=== PATIENT | female | born 1950 | race Caucasian/White ===

== ENCOUNTER → 2017-02-24 | Outpatient (CLI) | payer MEDICARE, MEDICAID ==
[~2017-02-24] MED LIST: ALBU18HF INH; AMLO5TAB2 PO; ASCO-96 PO; CLON0.1T PO; EPIN0.3P3 IM; FLUO40CA2 PO; FURO20TA3 PO; GABA100C8 PO; LEVO100T PO; LORA10TA62 PO; LOSA100T6 PO; MILK150C2 PO; MULT-230 PO; OMEP-110 PO; OXYC20TA2 PO; OXYC40TA PO; SENN1TAB67 PO; [UNRECOGNIZED DRUG - OTHER] PO
[2017-02-24 15:29] LABS: BLOOD UREA NITROGEN 5 mg/dL (7-18)
[2017-02-24 15:34] LABS: ASPARTATE AMINO TRANSFERASE 120 U/L (15-37)
== END | disposition home or self-care (01) ==
LOC: STAR 13:35
PROVIDERS: ATTEND Surgery
DX: Z01.818 Encounter for other preprocedural examination (principal); M41.85 Other forms of scoliosis, thoracolumbar region; I70.0 Atherosclerosis of aorta; M47.895 Other spondylosis, thoracolumbar region; Q79.1 Other congenital malformations of diaphragm; Z90.49 Acquired absence of other specified parts of digestive tract
CPT/HCPCS: 36415; 71020; 80053; 85025; 85610; 93005

== ENCOUNTER 2017-03-02 13:28 | Day surgery (SDC) | payer MEDICARE, MEDICAID ==
[~2017-03-02] VITALS: Ht 157.5 cm; Wt 83.0 kg
[~2017-03-02 13:28] MED LIST changes: +GABA-826 PO; -GABA100C8 PO
[2017-03-02] MEDS ORDERED: LACTATED RINGERS 1,000 ML IV SCH (13:47)
[2017-03-02 13:48] VITALS: BP 157/80
[2017-03-02] MEDS ORDERED: BUPIVACAINE/PF-EPI 0.5% 1:200K ONE (13:54)
[2017-03-02] MEDS ORDERED: LIDOCAINE 1%, 2ML SQ PRN (14:00)
[2017-03-02] MEDS ORDERED: BUPIVACAINE/PF-EPI 0.5% 1:200K INFIL ONE (14:00)
[2017-03-02] MEDS ORDERED: DEXAMETHASONE 4 MG/ML, 1ML ONE (14:18)
[2017-03-02] MEDS ORDERED: GLYCOPYRROLATE 0.2MG/1ML ONE (14:18)
[2017-03-02] MEDS ORDERED: ROCURONIUM 10 MG/ML ONE (14:18)
[2017-03-02] MEDS ORDERED: PROPOFOL 10 MG/ML, 20ML ONE (14:18)
[2017-03-02] MEDS ORDERED: ONDANSETRON 2MG/ML, 2ML ONE (14:18)
[2017-03-02] MEDS ORDERED: CEFAZOLIN 1,000 MG ONE (14:18)
[2017-03-02] MEDS ORDERED: NEOSTIGMINE 1 MG/ML, 10ML ONE (14:18)
[2017-03-02] MEDS ORDERED: FENTANYL PF 100 MCG/2ML ONE ×2 (14:19)
[2017-03-02] MEDS ORDERED: OXYcodone 5 MG/5 ML ORAL.SOL UDC PO PRN (15:00)
[2017-03-02] MEDS ORDERED: ONDANSETRON 2MG/ML, 2ML IVPush PRN (15:00)
[2017-03-02] MEDS ORDERED: HYDROmorphone 1 MG/ML, 1ML IV PRN (15:00)
[2017-03-02] MEDS ORDERED: ACETAMINOPHEN 325 MG TABLET PO PRN (15:00)
[2017-03-02] MEDS ORDERED: LABETALOL 5MG/ML, 20ML IV PRN (15:00)
[2017-03-02] MEDS ORDERED: EPHEDRINE 50 MG/ML, 1ML IVPush PRN (15:00)
[2017-03-02] MEDS ORDERED: METOPROLOL 1 MG/ML, 5ML IV PRN (15:00)
[2017-03-02] MEDS ORDERED: hydrALAzine 20 MG/ML, 1ML IV PRN (15:00)
[2017-03-02] MEDS ORDERED: ALBUTEROL SULFATE 2.5 MG/3 ML NPPB PRN (15:00)
[2017-03-02] MEDS ORDERED: FENTANYL PF 100 MCG/2ML IV PRN (15:00)
[2017-03-02] MEDS ORDERED: ALBUTEROL SULFATE 2.5 MG/3 ML ONE (15:19)
== END 2017-03-02 17:30 | disposition home or self-care (01) ==
LOC: OUT 13:28
PROVIDERS: ATTEND Surgery
DX: K40.90 Unilateral inguinal hernia, without obstruction or gangrene, not specified as recurrent (principal); G47.33 Obstructive sleep apnea (adult) (pediatric); I10 Essential (primary) hypertension; E03.9 Hypothyroidism, unspecified; Z90.49 Acquired absence of other specified parts of digestive tract; Z96.651 Presence of right artificial knee joint; Z88.0 Allergy status to penicillin; Z91.013 Allergy to seafood; Z88.2 Allergy status to sulfonamides; Z88.3 Allergy status to other anti-infective agents; Z82.49 Family history of ischemic heart disease and other diseases of the circulatory system; Z83.3 Family history of diabetes mellitus; Z98.890 Other specified postprocedural states; Z90.710 Acquired absence of both cervix and uterus; Z90.722 Acquired absence of ovaries, bilateral
CPT/HCPCS: 49650; 94640; C1727; C1781; J0690; J1100; J2405; J2704; J2710; J3010; J7120; J3490